=== PATIENT | female | born 1965 | race Caucasian/White ===

== ENCOUNTER → 2016-07-17 | Outpatient (CLI) | payer BC ==
[~2016-07-17] MED LIST: ASCO250T6; CITA-51 PO; FERR324T4 PO; GABA-305 PO; INSU100V SQ; INSU100V8 SQ; LACT1CAP46 PO; LEVO500T88 PO; METF500T PO; ONABOTULINUM TOXIN A 100 UNIT IM ONE; OXYC-533 PO; OXYC1TAB11 PO; PEDI1TAB52 PO; PROM-51 PO; QUET100T69 PO; RIZA10TA12 PO
== END ==
LOC: NEU 10:09
PROVIDERS: ATTEND Psychiatry & Neurology Neurology
DX: G43.719 Chronic migraine without aura, intractable, without status migrainosus (principal); E11.40 Type 2 diabetes mellitus with diabetic neuropathy, unspecified; G56.21 Lesion of ulnar nerve, right upper limb; G62.89 Other specified polyneuropathies; G56.03 Carpal tunnel syndrome, bilateral upper limbs; G57.01 Lesion of sciatic nerve, right lower limb; Z79.4 Long term (current) use of insulin
CPT/HCPCS: 64615; 95886; 95912; J0585; 95874

== ENCOUNTER 2016-08-08 10:06 | Day surgery (SDC) | payer BC ==
[2016-08-08] VITALS (14 sets, daily range): BP systolic 106–159; BP diastolic 58–80; PULSE 62–85; RESP 11–23; TEMP 97.2–99; O2SAT 95–100; Ht 170.2 cm; Wt 92.5 kg
[~2016-08-08] VITALS: Ht 170.2 cm; Wt 92.5 kg
[~2016-08-08 10:06] MED LIST changes: +LR 1,000 ML IV SCH; +MULT-933 PO; -ONABOTULINUM TOXIN A 100 UNIT IM ONE
--- OUTSIDE RECORDS SUMMARY | 2016-08-08 10:12 | XMS REPORT | Continuity of Care Document ---
Author Author [facility] Organization [facility] Address Unknown Phone Unavailable Allergies Medications Problems Procedures Results Encounters ACCT No. Visit Date/Time Discharge Status Pt. Type Provider Facility Loc./Unit Complaint [id number] 03/02/2013 15:34:00 03/02/2013 23 :59:59 CLS Outpatient [id number] 03/02/2013 14:14:00 03/02/2013 23 :59:59 CLS Outpatient
--- OUTSIDE RECORDS SUMMARY | 2016-08-08 10:12 | XMS REPORT | Continuity of Care Document ---
Author Author [facility] Organization [facility] Address Unknown Phone Unavailable Support Name Relationship Address Phone ERROL BACH MD Caregiver [address] [place] [address] Unavailable SUN GUALLPA FACS, MD Caregiver [address] [place] [address] Unavailable TREMAYNE JOHNSON Next Of Kin [address] [place] [address] Insurance Providers Guarantor Diana Johnson Address [address] [place] [address] Email DENIED/NO TO [facility] Policy Number [id number] Subscriber's Name AlexDougie kirkli Luke Relationship 01 Spouse Group Number [id number] Advance Directives Directive Response Recorded Date/Time Ordered Resuscitation Status Full Code 02/29/16 3:40pm Resuscitation Documents on File No 03/01/16 10:28am DPOA for Healthcare Only Yes 03/01/16 10:28am Living Will Yes 03/01/16 10:28am Problems Active Problems Medical Problem Onset Date Status Anemia Unknown Chronic Asthma Unknown Chronic Constipation due to opioid therapy Unknown Resolved Depression Unknown Chronic Diabetic neuropathy Unknown Chronic Dyslipidemia Unknown Chronic Fibromyalgia Unknown Chronic Fluid overload Unknown Resolved Headache, migraine Unknown Chronic Hirsutism Unknown Chronic Hypertension Unknown Chronic Leukocytosis Unknown Resolved MRSA (methicillin resistant Staphylococcus aureus) carrier Unknown Chronic Metabolic acidosis Unknown Resolved Mild protein malnutrition Unknown Acute Necrotizing fasciitis Unknown Acute Obesity (BMI 30-39.9) Unknown Chronic Polycystic ovaries Unknown Chronic Pressure ulcer Unknown Acute Seasonal allergies Unknown Chronic Thrombocytosis Unknown Acute Tobacco dependence Unknown Chronic Type II diabetes mellitus Unknown Chronic Vaginal candidiasis Unknown Resolved Wound of left groin Unknown Acute Medications Current Home Medications Medication Dose Units Route Directions Days Qty Instructions Start Date Ascorbic Acid (Vitamin C) 250 Mg Tab.chew 03/01/16 Citalopram Hydrobromide (Celexa) 40 Mg Tablet 40 Mg Oral Daily Ferrous Sulfate 324 Mg Tablet. 324 Mg Oral Give With Breakfast 60 Tablet 02/13/16 Gabapentin 600 Mg Tablet 3 Tab Oral Twice A Day 02/29/16 Insulin Glargine,Hum.rec.anlog (Lantus) 100 Unit/Ml Inj 10 Unit Sub-Q Daily Morning Insulin 02/29/16 Insulin Lispro (Humalog) 100 Unit/Ml Inj 8 Unit Sub-Q Three Times Daily With Meals 30 02/13/16 Lactobacillus Acidophilus (Bacid Caplet) 1 Cap Capsule 2 Cap Oral Three Times Daily With Meals 14 Days 84 Capsule 02/13/16 Levofloxacin 500 Mg Tablet 500 Mg Oral Before Breakfast as needed for Daily 7 Days 7 Tablet 03/01/16 Metformin Hcl (Glucophage) 500 Mg Tablet 500 Mg Oral Twice Daily With Meals 30 Days 60 Tablet 02/13/16 Oxycodone Hcl/Acetaminophen (Oxycodone-Acetaminophen 10-325) 10-325 Tablet 1- 2 Tab Oral Every Five To Six Hours for Pain 30 Tablet 03/01/16 Oxycodone/Acetaminophen (Percocet 7.5-325 Mg Tablet) 7.5-325 Tablet 1-2 Tab Oral Every 4 Hours Prn for Pain 60 Tablet 02/13/16 Pediatric Multivit Comb No.101 (Gummy) 1 Each Tab.chew 1 Tab Oral Daily 02/29/16 Promethazine Hcl 25 Mg Tablet 25 Mg Oral Four Times Daily as needed 05/01/11 Quetiapine Fumarate 100 Mg Tablet 100 Mg Oral Bedtime 01/30/16 Rizatriptan Benzoate (Maxalt Cafe Assistant) 10 Mg/Tab Tab.rapdis 10 Mg Oral Daily Prn 05/01/11 Past Home Medications Medication Directions Ordered Status Antibiotic , 1 Cap Oral Four Times Daily 06/15/08 Discontinued [id number] , Oral Daily 06/15/08 Discontinued Chromium Picolinate 200 Mcg Capsule, Mcg Oral Daily 06/15/08 Discontinued Insulin Glargine (Lantus) 100 U/Ml Vial, 30 U Sub-Q Daily Morning Insulin 14/12 Discontinued Insulin Lispro (Humalog) 100 U/Ml Vial, 30 U Sub-Q Three Times A Day as needed for Prn Orders 09/13/08 Discontinued Metformin Hcl 1,000 Mg Tablet, 1000 Mg Oral Twice A Day 06/15/08 Discontinued Oxycodone Hcl/Acetaminophen (Oxycodone-Acetaminophen 5-325) 5-325 Tablet, 1-2 Tab Oral as needed for Pain 01/30/16 Discontinued Social History Social History Problem Response Recorded Date/Time Onset Date Status Reason for Hospitalization DELAYED PRIMARY CLOSURE OF LEFT GROIN WOUND 2015 3:41pm Not Applicable Not Applicable Chewing Tobacco Status No 03/01/2016 10:10am Not Applicable Not Applicable Hx Substance Use No 03/01/2016 10:10am Not Applicable Not Applicable Hx Alcohol Use Y 1 PER MONTH 03/01/2016 10:10am Not Applicable Not Applicable Has the pt used tobacco in the last 12 months Yes 03/01/2016 10:10am Not Applicable Not Applicable Query Response Start Date Stop Date Smoking Status Former smoker Hospital Discharge Instructions Instructions: Care Instructions: I was in the hospital because (patient own words): TO SEAL WOUND ON LEFT GROIN Discharge Diet: REGULAR Discharge Activity: Do not drive, operate machinery for 24 hours after surgery or while taking pain medication. As tolerated, do not take long steps, be careful of the wound vac. Follow Up Appointments: Follow up in the wound clinic on Friday for vac change, this does not have to be with Dr. Guallpa, then again on Friday at the wound clinic with Dr. Guallpa. If you do not already have an appointment, I left them a message to call you to set up times. Pending Lab / Results: No Pending Lab Expected Signs/Symptoms: tightness of the left upper thigh Notify Physician If: 1. Call your surgeon if you are having problems relating to your surgery at [phone]. 2. Problems such as: Temp above 101.5 degrees You develop redness, excessive swelling of the incision, increasing pain or excessive foul smelling drainage. 3. If the office is closed, call [facility] at [phone] and have your Surgeon paged. During Business Hours:: Call your surgeon at at [phone]. After Business Hours:: If the office is closed, call [facility] at [phone] and have your Surgeon paged. Pain Management/Treatment: Follow prescriptions as prescribed Wound/Incision Care: Keep wound vac in place. Condition at time of discharge: Good Plan of Care Discharge Date 03/01/16 4:24pm Prescriptions See Medication Section Functional Status Query Response Date Recorded Ability to complete ADL's impeded by No change March 01, 2016 10:28am Allergies, Adverse Reactions, Alerts Allergen Type Severity Reaction Status Last Updated Penicillin Allergy Unknown RASH Active 02/29/16 Morphine Adverse Reaction Unknown BURNING UP ARM Active 02/29/16 Amoxicillin Allergy Unknown SKIN RASH Active 02/29/16 Immunizations Query Response on File Recorded Date/Time Hx Influenza Vaccination No 03/01/16 10:10am Hx Pneumococcal Vaccination No 03/01/16 10:10am Hx Influenza Vaccination No 03/01/16 10:10am Influenza Vaccine Hx had once. 01/31/16 3:49pm Vital Signs Acute Vital Signs Vital Response Date/Time Temperature (Fahrenheit) 98.7 deg F (96.8 - 99.1) 03/01/2016 2:57pm Temperature (Calculated Celsius) 37.22005 degrees C (36.0 - 37.3) 03/01/2016 2:57pm Temperature Source Axillary 03/01/2016 2:57pm Pulse Rate (adult) 50 bpm (60 - 100) 03/01/2016 4:10pm Respiratory Rate 17 breaths/min (10 - 20) 03/01/2016 4:10pm O2 Sat by Pulse Oximetry 97 % (90 - 100) 03/01/2016 4:10pm Oxygen Delivery Method Room Air 02/06/2016 6:43pm Oxygen Delivery Method Room Air 03/01/2016 4:10pm Oxygen Flow Rate 1.00 L/min 02/06/2016 3:15pm Blood Pressure 152/66 mm Hg 03/01/2016 4:10pm Blood Pressure Source Automatic Cuff 03/01/2016 4:10pm Height (Feet) 5 feet 03/01/2016 9:35am Height (Inches) 7.00 inches 03/01/2016 9:35am Weight (Kilograms) 89.000 kg 03/01/2016 9:35am Body Mass Index (BMI) 30.7 03/01/2016 9:35am Results Laboratory Results Test Name Result Units Flags Reference Collection Date/Time Result Date/ Time Comments Neutrophils % (Manual) 62.0 % 33-66 02/01/2016 4:44am 02/01/2016 6: 00am Band Neutrophils % 5.0 % 0-6 02/01/2016 4:44am 02/01/2016 6:00am Lymphocytes % (Manual) 27.0 % 23-45 02/01/2016 4:44am 02/01/2016 6: 00am Monocytes % (Manual) 5.0 % 0-9.0 02/01/2016 4:44am 02/01/2016 6:00am Eosinophils % (Manual) 1.0 % 0-4 02/01/2016 4:44am 02/01/2016 6:00am Reactive Lymphocytes % 1.0 % H 0-0 01/30/2016 2:24pm 01/30/2016 4:12pm Band Neutrophils # 0.6 T/MM3 02/01/2016 4:44am 02/01/2016 6:00am Absolute Neutrophils (Manual) 6.9 T/MM3 1.8-7.7 02/01/2016 4:44am 01/31 6:00am Lymphocytes # (Manual) 3.0 T/MM3 1-4.8 02/01/2016 4:44am 02/01/2016 6: 00am Monocytes # (Manual) 0.6 T/MM3 0-0.8 02/01/2016 4:44am 02/01/2016 6: 00am Eosinophils # (Manual) 0.1 T/MM3 0-0.5 02/01/2016 4:44am 02/01/2016 6: 00am Reactive Lymphocytes # 0.2 T/MM3 H 0-0 01/30/2016 2:24pm 01/30/2016 4: 12pm Red Cell Morphology Comment NORMAL 02/01/2016 4:44am 02/01/2016 6: 00am Phosphorus Level 3.5 MG/DL 2.5-4.5 02/02/2016 3:56am 02/02/2016 5:01am Total Bilirubin 0.20 MG/DL 0.20-1.30 02/09/2016 5:17am 02/09/2016 5: 45am Alkaline Phosphatase 86 U/L 38-126 02/09/2016 5:17am 02/09/2016 5:45am Total Protein 5.5 G/DL L 6.3-8.2 02/09/2016 5:17am 02/09/2016 5:45am Albumin 2.7 G/DL L 3.5-5.0 02/09/2016 5:17am 02/09/2016 5:45am Globulin 2.8 G/DL 2.4-3.6 02/09/2016 5:17am 02/09/2016 5:45am Albumin/Globulin Ratio 1.0 RATIO L 1.1-2.2 02/09/2016 5:17am 02/09/2016 5:45am Aspartate Amino Transf (AST/SGOT) 15 U/L 14-36 02/09/2016 5:17am 2015 5:45am Alanine Aminotransferase (ALT/SGPT) 26 U/L 9-52 02/09/2016 5:17am 02/08 5:45am C-Reactive Protein 11.6 MG/L H 0-9 02/12/2016 4:26am 02/12/2016 5:37am Magnesium Level 1.8 MG/DL 1.6-2.3 02/12/2016 4:26am 02/12/2016 5:37am Plasma Lactate 1.0 MMOL/L 0.6-2.2 01/30/2016 8:42pm 01/30/2016 8:55pm Procalcitonin 2.00 NG/ML 02/01/2016 4:44am 02/01/2016 6:18am PCT </= 0.5 ng/mL - sepsis not likely; PCT >0.5 and </=2 ng/mL - sepsis possible; PCT >2 ng/mL - sepsis likely; PCT >/=10 ng/mL - systemic inflammatory response - sepsis or septic shock highly indicated. Iron Level 42 UG/DL 37-170 02/01/2016 4:44am 02/02/2016 1:56am Total Iron Binding Capacity 220 UG/DL L 261-497 02/01/2016 4:44am 2015 2:16am Percent Iron Saturation 19 % 9-55 02/01/2016 4:44am 02/02/2016 2:16am Vitamin B12 Level > 1000 PG/ML H 239-931 02/05/2016 4:00am 02/07/2016 3: 29am Prealbumin 12.2 MG/DL L 17.6-36.0 02/05/2016 4:00am 02/05/2016 10:17am Hemoglobin A1c 13.4 % H 6.1-7.9 01/30/2016 2:24pm 01/30/2016 2:58pm < 6.0 NON-DIABETIC RANGE 6.1-7.9 [facility] TARGET RANGE >8.0 ACTION SUGGESTED MRSA Specimen Source NASAL 01/30/2016 3:11pm 01/30/2016 6:02pm Methicillin-Resist S.aureus DNA PCR POSITIVE A NEGATIVE 01/30/2016 3: 11pm 01/30/2016 6:02pm Urine Collection Type VOIDED-NOT CC-MIDSTR 01/30/2016 4:55pm 2015 5:13pm Urine Color YELLOW YELLOW 01/30/2016 4:55pm 01/30/2016 5:13pm Urine Turbidity CLEAR CLEAR 01/30/2016 4:55pm 01/30/2016 5:13pm Urine Specific [place] 1.020 1.015-1.025 01/30/2016 4:55pm 2015 5:13pm Urine pH 6.0 5.0-8.0 01/30/2016 4:55pm 01/30/2016 5:13pm Urine Leukocyte Esterase NEGATIVE NEGATIVE 01/30/2016 4:55pm 2015 5:13pm Urine Nitrite NEGATIVE NEGATIVE 01/30/2016 4:55pm 01/30/2016 5:13pm Urine Protein TRACE A NEGATIVE 01/30/2016 4:55pm 01/30/2016 5:13pm Urine Glucose (UA) 2+ A NEGATIVE 01/30/2016 4:55pm 01/30/2016 5:13pm Urine Ketones 3+ A NEGATIVE 01/30/2016 4:55pm 01/30/2016 5:13pm Urine Urobilinogen 0.2 EU/DL NORMAL 01/30/2016 4:55pm 01/30/2016 5: 13pm Urine Bilirubin 1+ A NEGATIVE 01/30/2016 4:55pm 01/30/2016 5:13pm Urine Blood 2+ A NEGATIVE 01/30/2016 4:55pm 01/30/2016 5:13pm Urine WBC 3-5 /HPF 0-5 01/30/2016 4:55pm 01/30/2016 5:31pm Urine RBC 3-5 /HPF H 0-3 01/30/2016 4:55pm 01/30/2016 5:31pm Urine Bacteria TRACE H NEGATIVE 01/30/2016 4:55pm 01/30/2016 5:31pm Urine Culture Indicated CULT NOT INDICATED 01/30/2016 4:55pm 2015 5:31pm Glucometer 116 mg/dL H 65-110 02/13/2016 3:50pm 02/13/2016 3:57pm White Blood Count 7.4 T/MM3 4.5-11.0 03/01/2016 9:41am 03/01/2016 10: 09am Red Blood Count 4.49 M/MM3 4.00-5.20 03/01/2016 9:41am 03/01/2016 10: 09am Hemoglobin 13.8 GM/DL 12-16 03/01/2016 9:41am 03/01/2016 10:09am Hematocrit 42.9 % 36-46 03/01/2016 9:41am 03/01/2016 10:09am Mean Corpuscular Volume 95.5 UM3 80-100 03/01/2016 9:41am 03/01/2016 10 :09am Mean Corpuscular Hemoglobin 30.7 UUG 26-34 03/01/2016 9:41am 2015 10:09am Mean Corpuscular Hemoglobin Concent 32.2 GM/DL 31-37 03/01/2016 9:41am 03/01/2016 10:09am RDW Standard Deviation 45.4 FL 36.9-50.2 03/01/2016 9:41am 03/01/2016 10:09am Platelet Count 426 T/MM3 H 130-400 03/01/2016 9:41am 03/01/2016 10:09am Mean Platelet Volume 9.1 UM3 L 9.4-12.4 03/01/2016 9:41am 03/01/2016 10: 09am Neutrophils (%) (Auto) 43.1 % 33-66 03/01/2016 9:41am 03/01/2016 10: 09am Lymphocytes (%) (Auto) 46.0 % H 23-45 03/01/2016 9:41am 03/01/2016 10: 09am Monocytes (%) (Auto) 5.6 % 0-9.0 03/01/2016 9:41am 03/01/2016 10:09am Eosinophils (%) (Auto) 4.4 % H 0-4 03/01/2016 9:41am 03/01/2016 10:09am Basophils (%) (Auto) 0.8 % 0-2 03/01/2016 9:41am 03/01/2016 10:09am Immature Granulocyte % (Auto) 0.1 % 0.0-0.5 03/01/2016 9:41am 2015 10:09am Absolute Neutrophils (auto) 3.2 T/MM3 1.8-7.7 03/01/2016 9:41am 2015 10:09am Absolute Lymphocytes (auto) 3.4 T/MM3 1-4.8 03/01/2016 9:41am 2015 10:09am Absolute Monocytes (auto) 0.4 T/MM3 0-0.8 03/01/2016 9:41am 03/01/2016 10:09am Absolute Eosinophils (auto) 0.3 T/MM3 0-0.5 03/01/2016 9:41am 2015 10:09am Absolute Basophils (auto) 0.1 T/MM3 0-0.2 03/01/2016 9:41am 03/01/2016 10:09am Absolute Immature Granulocyte (auto 0.01 T/MM3 0.00-0.03 03/01/2016 9: 41am 03/01/2016 10:09am Icterus Index < 2 0-7 03/01/2016 9:41am 03/01/2016 10:20am Chemistry Specimen Hemolysis < 15 0-25 03/01/2016 9:41am 03/01/2016 10:20am 0-25: Specimen Exhibited No Hemolysis. Turbidity < 20 0-20 03/01/2016 9:41am 03/01/2016 10:20am Sodium Level 138 MEQ/L 134-144 03/01/2016 9:41am 03/01/2016 10:20am Potassium Level 4.4 MEQ/L 3.6-5 03/01/2016 9:41am 03/01/2016 10:20am Chloride Level 99 MEQ/L 98-107 03/01/2016 9:41am 03/01/2016 10:20am Carbon Dioxide Level 27 MEQ/L 22-30 03/01/2016 9:41am 03/01/2016 10: 20am Anion Gap 12 MEQ/L 5-15 03/01/2016 9:41am 03/01/2016 10:20am Blood Urea Nitrogen 15.0 MG/DL 7-17 03/01/2016 9:41am 03/01/2016 10: 20am Creatinine 0.7 MG/DL 0.7-1.2 03/01/2016 9:41am 03/01/2016 10:20am BUN/Creatinine Ratio 21 RATIO 6-26 03/01/2016 9:41am 03/01/2016 10: 20am Glomerular Filtration Rate Calc 89 03/01/2016 9:41am 03/01/2016 10: 20am Glucose Level 179 MG/DL H 65-110 03/01/2016 9:41am 03/01/2016 10:20am Calculated Osmolality 271 MOSM/KG 261-280 03/01/2016 9:41am 03/01/2016 10:20am Calcium Level 9.7 MG/DL 8.4-10.2 03/01/2016 9:41am 03/01/2016 10:20am Microbiology Results Procedure Source Organism/Result Collection Date/Time Result Date/Time Result Status Blood Culture Peripheral/Iv Start STAPHYLOCOCCUS, NOT S. AUREUS 01/30/2016 2:29pm 02/05/2016 6:12am Final Surgical Culture Perineum PREVOTELLA MELANINOGENICA 01/30/2016 7:45pm 10/2015 1:02pm Final DIPHTHEROID BACILLUS 01/30/2016 7:45pm 02/06/2016 1:02pm Final COAG NEGATIVE STAPHYLOCOCCUS 01/30/2016 7:45pm 02/06/2016 1:02pm Final STREP AGALACTIAE - (GROUP B) 01/30/2016 7:45pm 02/06/2016 1:02pm Final Procedures Procedure Status Date Provider(s) KOREY MUSC/FASCIA 20 SQ CM/< Completed 01/30/16 SUN ORTEGA MD MUSC/FASCIA ADD-ON Completed 01/30/16 SUN ORTEGA MD MUSC/FASCIA 20 SQ CM/< Completed 01/30/16 SUN ORTEGA MD MUSC/FASCIA 20 SQ CM/< Completed 01/30/16 SUN ORTEGA MD EXCISION OF LEFT UPPER LEG MUSCLE, OPEN APPROACH Completed 01/30/16 SUN ORTEGA MD EXCISION OF PELVIC SUBCU/FASCIA, OPEN APPROACH Completed 02/06/16 SUN ORTEGA MD EXCISION OF PERINEUM SUBCU/FASCIA, OPEN APPROACH Completed 02/06/16 SUN ORTEGA MD Wound debridement Completed 03/01/16 SUN GUALLPA MD, FACS, CWS Encounters Encounter Location Arrival/Admit Date Discharge/Depart Date Attending Provider Departed Surgical Day Care [facility] 03/01/16 9:25am 03/01/16 4: 24pm SUN GUALLPA FACS, MD Registered [facility] 02/27/16 9:27am SUN GUALLPA FACS, MD Registered [facility] 02/23/16 9:26am SUN GUALLPA FACS, MD Registered Clinic [facility] 02/20/16 9:24am SUN GUALLPA FACS, MD Registered [facility] 02/19/16 5:31pm ERROL BACH MD Registered [facility] 02/16/16 9:28am SUN GUALLPA FACS, MD Discharged Inpatient [facility] 01/30/16 8:30pm 02/13/16 5:14pm JAVY MOYER MD
--- OUTSIDE RECORDS SUMMARY | 2016-08-08 10:12 | XMS REPORT | Referral Summary ---
Author Author [facility] Organization [facility] Address Unknown Phone Unavailable Care Team Providers Care Finished Garment Inspector Name Role Phone Delphine Michaud Primary Care Physician [phone] Encounter Date(s): 01/30/16 - 01/30/16 [facility] [address] [place] [address]- Discharge Diagnosis: Cellulitis of groin, left Discharge Diagnosis: Diabetes mellitus type II, uncontrolled Discharge Disposition: 01-Home or Self Care Attending Physician: Ama Lopez PA-C Admitting Physician: Ama Lopez PA-C Vital Signs Most recent to 1 oldest [Reference Range]: Peripheral Pulse 99 bpm Rate [60-100 bpm] (01/30/16 9:46 AM) Respiratory Rate 16 br/min [14-20 br/min] (01/30/16 9:46 AM) Blood Pressure 120/82 mmHg [90-140/60-90 mmHg] (01/30/16 9:46 AM) SpO2 97 % (01/30/16 9:46 AM) Problem List Condition Effective Dates Status Health Status Informant Allergies(Confirmed) Active Allergic Active rhinitis/Hay Fever(Confirmed) Angina Active pectoris(Confirmed) Asthma(Confirmed) Active Benign essential Active hypertension(Confirm ed) Bronchitis(Confirmed Active ) Depression(Confirmed Active ) Diabetic Active neuropathy(Confirmed ) Dyslipidemia(Confirm Active ed) Dysuria(Confirmed) Active Stress incontinence Active in female(Confirmed) Fibromyalgia(Confirm Active ed) Headache(Confirmed) Active Hirsutism(Confirmed) Active Hypercholesterolemia Active (Confirmed) Hyperlipidemia(Confi Active rmed) Ear Active infections(Confirmed ) Migraine Active headaches(Confirmed) Overweight(Confirmed Active ) Chronic Active insomnia(Confirmed) Polycystic Active ovaries(Confirmed) Sinus Active infections(Confirmed ) DM I (diabetes Active mellitus, type I), uncontrolled(Confirm ed) Allergies, Adverse Reactions, Alerts Substance Reaction Severity Status amoxicillin rash Active morphine Active penicillin Active Medications amitriptyline 25 mg oral tablet See Instructions, TAKE ONE TABLET BY MOUTH AT BEDTIME, # 30 tabs, eRx: [facility] [place] #[id number], TAKE ONE TABLET BY MOUTH AT BEDTIME Start Date: 12/28/15 Status: Ordered amitriptyline 25 mg oral tablet 25 mg 1 tabs, Oral, Bedtime (once a day), # 30 tabs, 0 Refill(s), Pharmacy: [facility] [place] #[id number], 1 tabs Oral Bedtime (once a day) Start Date: 11/28/15 Status: Ordered Bactroban 2% topical ointment 1.7 g, Topical, TID, # 30 g, 0 Refill(s), Pharmacy: [facility] [place] #[id number] Start Date: 06/14/15 Status: Ordered citalopram 20 mg oral tablet See Instructions, TAKE ONE TABLET BY MOUTH TWICE A DAY, # 180 tabs, 1 Refill(s) , eRx: [facility] [place] #[id number], TAKE ONE TABLET BY MOUTH TWICE A DAY Start Date: 08/09/15 Status: Ordered gabapentin 600 mg oral tablet See Instructions, TAKE ONE TO TWO TABLETS BY MOUTH THREE TIMES A DAY NO MORE THAN 6 TABLETS PER DAY MUST CALL MD FOR APPOINTMENT FOR FURTHER REFILLS, # 180 tabs, eRx: [facility] [place] #[id number], TAKE ONE TO TWO TABLETS BY MOUTH THREE TIMES A DAY NO MO... Start Date: 11/23/15 Status: Ordered HumaLOG KwikPen SubCutaneous, 0 Refill(s) Start Date: 10/11/14 Status: Ordered Lantus Solostar Pen 100 units/mL subcutaneous solution 35 units, SubCutaneous, Daily, morning, # 10 mL, 0 Refill(s), samples given to patient (Rx) Start Date: 12/01/13 Status: Ordered Maxalt-PHOTOGRAMMETRIC TECH 10 mg oral tablet, disintegrating 10 mg 1 tabs, Oral, Daily, as needed for migraine headache, # 10 tabs, 0 Refill( s), Pharmacy: [facility] [place] #[id number], 1 tabs Oral Daily,PRN:as needed for migraine headache Start Date: 11/28/15 Status: Ordered naproxen 500 mg oral delayed release tablet See Instructions, TAKE ONE TABLET BY MOUTH TWICE A DAY NEEDED FOR HEADACHE, # 90 tabs, 1 Refill(s), eRx: [facility] #[id number], TAKE ONE TABLET BY MOUTH TWICE A DAY NEEDED FOR HEADACHE Start Date: 05/08/15 Status: Ordered Percocet 5/325 oral tablet 1 tabs, Oral, q6hr, as needed for pain, # 5 tabs, 0 Refill(s) Start Date: 01/30/16 Status: Ordered promethazine 25 mg oral tablet 25 mg 1 tabs, Oral, q6hr, as needed for nausea/vomiting, # 20 tabs, 0 Refill(s) , Pharmacy: [facility] #[id number], 1 tabs Oral q6hr,PRN:as needed for nausea/ vomiting Start Date: 03/06/15 Status: Ordered QUEtiapine 100 mg oral tablet See Instructions, TAKE ONE TABLET BY MOUTH AT BEDTIME, # 30 tabs, eRx: [facility] #[id number], TAKE ONE TABLET BY MOUTH AT BEDTIME Start Date: 01/29/16 Status: Ordered Topamax 50 mg oral tablet See Instructions, TAKE ONE and a half TABLET BY MOUTH TWICE A DAY, # 60 tabs, 2 Refill(s), eRx: [facility] #[id number], TAKE ONE TABLET BY MOUTH TWICE A DAY Start Date: 12/06/14 Status: Ordered Results Microbiology Reports TEST: Wound Culture and Smear STATUS: Order in Progress BODY SITE: Other SOURCE: Wound, Superficial COLLECTED DATE/TIME: 01/30/16 10:26 AM Gram Smear No white blood cells Mixed bacterial graciela OIF=Oil Immersion Field LPF=Low Power Field Immunizations Vaccine Date Refusal Reason tetanus/diphth/pertuss (Tdap) adult/adol 11/11/05 pneumococcal 23-polyvalent vaccine 02/10/09 Procedures Procedure Date Related Diagnosis Body Site section Tubal ligation-bilateral Social History Social History Type Response Smoking Status Current every day smoker Assessment and Plan Extracted from: Title: Office Visit Note- Necrotic Author: Ama Lopez PA-C Date : 01/30/16 ulcer, cellulitis Assessment/Plan Cellulitis of groin, left As stated above, it was recommended by Turner Earl APRN to admit the pt to the hospital for IV abx and surgery. This was explained to the pt. She also discussed the possible adverse events if treatment is not carried out soon. Turner recommended checking BG in clinic, giving a script for Percocet for pain, and they will try to have the hospitalist admit the pt. If not,wound carewill. The pt wants to go home and "pack abag". She was allowed to go home and do this, and she will be contacted to be admitted. If they do not call her, she is advised to call back to the clinic. Shevoiced understanding. Ordered: Office Visit Level 5 Est 65708 Diabetes mellitus type II, uncontrolled The pt's fingerstick BG was 293 in clinic. Ordered: Office Visit Level 5 Est 65745 Groin abscess See above. Wound culture taken. Ordered: Office Visit Level 5 Est 13719 Wound Culture and Smear
[2016-08-08 10:35] LABS: BASOPHILS % (AUTO) 0.3 % (0-2); EOSINOPHILS # (AUTO) 0.2 T/MM3 (0-0.5); EOSINOPHILS % (AUTO) 1.7 % (0-4); HCT - HEMATOCRIT 46.8 % (36-46); HGB - HEMOGLOBIN 15.2 GM/DL (12-16); IMMATURE GRANULOCYTE # (AUTO) 0.02 T/MM3 (0.00-0.03); IMMATURE GRANULOCYTE % (AUTO) 0.2 % (0.0-0.5); LYMPHOCYTES # (AUTO) 2.8 T/MM3 (1-4.8); LYMPHOCYTES % (AUTO) 23.7 % (23-45); MEAN CORPUSCULAR HGB 30.6 UUG (26-34); MEAN CORPUSCULAR HGB CONC(MCHC 32.5 GM/DL (31-37); MEAN CORPUSCULAR VOLUME 94.2 UM3 (80-100); MEAN PLATELET VOLUME 8.7 UM3 (9.4-12.4); MONOCYTES # (AUTO) 0.5 T/MM3 (0-0.8); MONOCYTES % (AUTO) 3.8 % (0-9.0); NEUTROPHILS #(AUTO)-ABSOLUTE 8.4 T/MM3 (1.8-7.7); NEUTROPHILS % (AUTO) 70.3 % (33-66); RED BLOOD COUNT 4.97 M/MM3 (4.00-5.20)
[2016-08-08 10:44] LABS: ANION GAP 15 MEQ/L (5-15); BUN/CREATININE RATIO 14 RATIO (6-26); CALCIUM 9.9 MG/DL (8.4-10.2); CHLORIDE 105 MEQ/L (98-107); CO2 - CARBON DIOXIDE 24 MEQ/L (22-30); CREATININE 0.7 MG/DL (0.7-1.2); GLOMERULAR FILTRATION RATE 89; GLUCOSE 266 MG/DL (65-110); POTASSIUM 4.4 MEQ/L (3.6-5); SODIUM 144 MEQ/L (134-144)
[2016-08-08] MEDS ORDERED: LIDOCAINE 1% (10mg/ml) 2ml SDV ID ONE (11:15)
--- NOTE | 2016-08-08 11:24 | ANESPREOP ---
Anesthesia Record Date and Time DATE: 08/08/16 TIME: 11:23 Pre-Op Diagnosis Labial wound Proposed Surgical Procedure WOUND DEBRIDEMENT- LABIAL NPO since: Midnight Allergies: Coded Allergies: Penicillins (Unverified Allergy, Unknown, RASH, 08/08/16) Sulfa (Sulfonamide Antibiotics) (Verified Allergy, Unknown, RASH, HIVES, ITCHING, 08/08/16) amoxicillin (Unverified Allergy, Unknown, SKIN RASH, 08/08/16) morphine (Unverified Adverse Reaction, Unknown, BURNING UP ARM, 08/08/16) WHEN GIVEN IV Ht/Wt/BMI Height: 5 ' 7.00 " Weight: 92.500 kg BMI: 31.9 kg/m2 Vital Signs Date Time Temp Pulse Resp B/P Pulse Ox O2 Delivery O2 Flow Rate FiO2 08/08/16 10:24 99.0 85 19 159/80 98 Room Air Medications Inpatient Medications Current Medications Medications (Trade) Dose Ordered Sig/Naldo Start Time Stop Time Status Last Admin Dose Admin Lactated Ringer's (Lactated Ringers) 1,000 ml @ 50 mls/hr Q20H 08/08/16 07:00 08/08/16 11:04 50 MLS/HR Ascorbic Acid (Vitamin C) 250 Mg Tab.chew, (Reported) Last Taken: on 08/07/16 0000 Citalopram (Celexa) 40 Mg Tablet, 40 MG PO DAILY, (Reported) Last Taken: on 08/07/16 0800 Ferrous Sulfate (Ferrous Sulfate) 324 Mg Tablet.dr, 324 MG PO WB Last Taken: on 08/07/16 1200 Gabapentin (Gabapentin) 600 Mg Tablet, 3 TAB PO BID, (Reported) Last Taken: on 08/07/16 2200 Insulin Glargine,Hum.rec.anlog (Lantus) 100 Unit/Ml Inj, 10 UNIT SQ AMI, (Reported) Last Taken: on 08/07/16 0800 Insulin Lispro (Humalog) 100 Unit/Ml Inj, 8 UNIT SQ TIDWM Last Taken: on 08/08/16 0830 Lactobacillus Acidophilus (Bacid Caplet) 1 Cap Capsule, 2 CAP PO TIDWM Last Taken: on Unknown Date & Time Levofloxacin (Levofloxacin) 500 Mg Tablet, 500 MG PO ACB PRN for daily Last Taken: on 08/07/16 2230 Metformin HCl (Glucophage) 500 Mg Tablet, 500 MG PO BIDWM Last Taken: on Unknown Date & Time Multivitamin (Multi-Day Vitamins) 1 Each Tablet, 1 TAB PO DAILY, (Reported) Last Taken: on 08/01/16 0800 Oxycodone HCl/Acetaminophen (Percocet 7.5-325 mg Tablet) 7.5-325 Tablet, 1-2 TAB PO Q4HPRN Last Taken: on 08/08/16 0915 Oxycodone HCl/Acetaminophen (Oxycodone- Acetaminophen 10-325) 10-325 Tablet, 1-2 TAB PO Q5-6H Last Taken: on 08/08/16 0915 Oxycodone HCl/Acetaminophen (Percocet 7.5-325 mg Tablet) 7.5-325 Tablet, 1-2 TAB PO Q6H PRN for PAIN, (Reported) Take 1 tablet, by mouth, every 4 hours as needed for pain. Last Taken: on 08/07/162229 Pediatric Multivit Comb No.101 (Gummy) 1 Each Tab.chew, 1 TAB PO DAILY, (Reported) Last Taken: on Unknown Date & Time Promethazine Hcl (Promethazine Hcl) 25 Mg Tablet, 25 MG PO Q6H PRN for NAUSEA, (Reported) Last Taken: on Unknown Date & Time Quetiapine Fumarate (Quetiapine Fumarate ) 100 Mg Tablet, 100 MG PO HS, (Reported) Last Taken: on 08/07/16 1800 Rizatriptan Benzoate (Maxalt Outboard Motor Inspector) 10 Mg/Tab Tab.rapdis, 10 MG PO DAILY PRN, (Reported) Last Taken: on 08/01/16 0800 Currently on Beta Serg: No Medical/Surgical History Anesthesia PMH: Reports: *Angina (HX OF ANGINA PECTORIS PER H&P), *Diabetes, * Hypertension (PER H&P), Asthma (PER H&P), Cancer (LEFT BREAST CA - PER PAST ADMIT), Depression, Headaches (MIGRAINES), Obesity, Denies: *Dyspnea, *ID, Anesthesia Reactions (NO AIRWAY ISSUES), Blood Transfusion Reac, CHF, CVA/Stroke /TIA, Deep Vein Thrombosis, Glaucoma, Hepatitis, Hiatal Hernia, Malignant Hyperthermia, Pacemaker, Pneumonia, Reflux, Renal Disease, Rheumatic Fever, Seizures, Sleep Apnea, Thyroid Disease, Tuberculosis Smoking Status: Current every day smoker Has pt. smoked today?: No # of Packs per Day: 1 # of Years: 20 Use Chewing Tobacco?: No Second Hand Exposure: Yes Substance Use Type: does not use Alcohol Intake: none Past Surgical History Orthopedic Surgeries: No Abdominal Surgeries: No Genitourinary Surgeries: No Cardiac Surgeries: No Endocrine Surgeries: No Reproductive Surgeries: Yes - C-SECT,TUBAL Neurological Surgeries: No Ear Surgeries: No Nose Surgeries: Yes - SINUS SURGERY 2010 Throat Surgeries: No Other Surgeries: Yes - LOCAL ROTATION FLAP LEFT INGUINAL Anesthesia Adverse Reactions: FOUND none Pertinent Findings Laboratory Tests 08/08/16 10:29 Test 08/08/16 10:29 Human Chorionic Gonadotropin, Qual Negative (NEGATIVE) EKG Rhythm: Sinus Rhythm Physical Exam Respiratory: Lungs clear Cardiovascular: FOUND Regular rate, rhythm Airway Assessment Mallampati Score: II TMD: 3 Fingerbreadths Neck Extension: Good Overall Assessment: No Airway Concerns ASA: 3 Plan Anesthesia Plan: GETA Discussion Discussed risks/options/alternatives of anesthesia and questions answered. Patient consents. Nursing pain assessment noted. Present: Spouse Attestation Statement Prior to the delivery of any anesthetic medication, I examined the patient, developed the plan, obtained the patient's consent and discussed the risk and benefits of the procedure with the patient/guardian. PO RHODES TRANSCRIPTION August 08, 2016 11:24
[2016-08-08] MEDS ORDERED: MIDAZOLAM 2mg/2ml INJECTION IV ONE (12:00)
[2016-08-08] MEDS ORDERED: LEVOFLOXACIN 500 mg IVPB 500 MG in D5W 100 ML IV ONE (12:00)
[2016-08-08] MEDS ORDERED: PROPOFOL 200mg 20 ML IV ONE ×2 (13:17→13:50)
[2016-08-08] MEDS ORDERED: LIDOCAINE 2% (20mg/ml) 5ml PF SDV ONE (13:17)
[2016-08-08] MEDS ORDERED: ROCURONIUM 50mg/5ml INJECTION IV ONE (13:17)
[2016-08-08] MEDS ORDERED: FENTANYL 100mcg/2ml INJECTION ONE (13:35)
[2016-08-08] MEDS ORDERED: BUPIVACAINE 0.25%/EPI 1:200,000 30ml SDV ONE (13:39)
[2016-08-08] MEDS ORDERED: PROPOFOL 500mg 50 ML IV ONE (13:43)
[2016-08-08] MEDS ORDERED: OXYC1TAB13 PO (14:27)
[2016-08-08] MEDS ORDERED: OXYCODONE/APAP 10mg/325mg TABLET PO ONE (14:45)
--- NOTE | 2016-08-09 11:47 | OPNOTEF ---
DATE OF SERVICE 08/08/2016 SURGEON Levi Colindres MD PREOPERATIVE DIAGNOSIS Necrotic wound involving left labia. POSTOPERATIVE DIAGNOSIS Necrotic wound involving left labia. PROCEDURE Excisional surgical debridement of necrotic wound involving left labia. Portion of skin, subcutaneous tissue and muscle excised. Wound 4 cm x 2 cm. ANESTHESIA TIVA/local BRIEF HISTORY/INDICATIONS Mrs. Johnson is a 51-year-old female who is very well known to my surgical practice. Last year I did take care of the patient as a result of a very complicated bout of necrotizing fasciitis involving the left inguinal/lower abdomen region. The patient had contacted my office earlier this week stating that she had developed an abscess involving her left labia. The patient was encouraged to present to the office for further evaluation. She was began by her PCP empirically on antibiotics. Upon examination the patient was found have an area of necrosis involving the left labia. This did not appear to be consistent with that of necrotizing fasciitis. Patient was electively scheduled to undergo excisional surgical debridement of this necrotic wound involving her left labia. For completeness, please refer to notes included in the patient's chart. DESCRIPTION OF PROCEDURE After informed was obtained, the patient was brought to the operative suite, placed on the table in a lithotomy position. Vaginal/perineal region was then prepped and draped in sterile fashion. Formal time-out was then completed. Next 0.25% Marcaine was injected circumferentially around the area of necrosis involving the midportion of the left labia. A culture swab was then placed within the wound itself. The wound opening initially was on the order of about 8 mm in diameter and did contain some necrotic material. Hemostat was able to be introduced into this opening and advanced both in a cephalad and caudad direction approximately 1.5 cm. The portion of the wound overlying this area that was tunneling was then opened with knife. The underlying wound was now visible. Utilizing a sharp surgical curette, the necrotic tissue within the depth of the wound was debrided sharply until a minimal amount of bleeding began to occur. One could then see that there was a deeper portion of the wound within the midportion of the wound. Hemostat was placed within this additional opening and was able to be advanced in a cephalad fashion about 1.5 to 2 cm in depth. There was a separate deeper component to this wound itself. Utilizing electrocautery the tissue overlying this area of concern was then further opened. One could then see some additional necrotic tissue deeper within this wound. This necrotic tissue was likely consistent with a component of some muscle and fascia. This area was further debrided sharply with curette and knife. Once all nonviable tissue had been excised, the wound was then irrigated with saline and carefully inspected. Hemostasis obtained with electrocautery. The wound itself was now about 4 cm in length and about 2 cm in width and likely on the order of about 2 cm in its greatest depth. Wound was then packed with Nu Gauze moistened in normal saline. 4 x 4 was then placed overlying the wound, held in place with tape. The patient is in process awakening from her anesthetic and will be sent back to recovery room once deemed in stable condition. PERLITA
== END 2016-08-08 15:03 | disposition home or self-care (01) ==
LOC: SCU 10:06
PROVIDERS: ATTEND Surgery
DX: S31.40XA Unspecified open wound of vagina and vulva, initial encounter (principal); J45.909 Unspecified asthma, uncomplicated; I10 Essential (primary) hypertension; F32.9 Major depressive disorder, single episode, unspecified; E10.40 Type 1 diabetes mellitus with diabetic neuropathy, unspecified; E78.5 Hyperlipidemia, unspecified; G43.909 Migraine, unspecified, not intractable, without status migrainosus; M79.7 Fibromyalgia; E66.3 Overweight; F17.200 Nicotine dependence, unspecified, uncomplicated; Z79.4 Long term (current) use of insulin; Z79.84 Long term (current) use of oral hypoglycemic drugs; Z79.899 Other long term (current) drug therapy; Z88.0 Allergy status to penicillin; Z88.1 Allergy status to other antibiotic agents; Z88.2 Allergy status to sulfonamides; Z88.5 Allergy status to narcotic agent; X58.XXXA Exposure to other specified factors, initial encounter
CPT/HCPCS: 11043; 36415; 80048; 84703; 85025; 87070; 87075; 87076; 87077; 87181; 87186; 87205; J0330; J2250; J2704; J3010; J7120; S0020